=== PATIENT | female | born 1985 | race African-American/Black ===

== ENCOUNTER 2018-02-22 03:44 | Emergency (ER) | payer SELFPAY ==
[~2018-02-22] VITALS: Ht 165.1 cm; Wt 72.6 kg
[2018-02-22 03:54] VITALS: BP 125/80
[2018-02-22] MEDS ORDERED: DOCUSATE SODIUM LIQ 100 MG/10 ML UDC ONE (04:20)
[2018-02-22] MEDS ORDERED: DOCUSATE SODIUM LIQ 100 MG/10 ML UDC NG ONE (04:30)
== END 2018-02-22 05:04 | disposition home or self-care (01) ==
LOC: ER 03:54
DX: H61.23 Impacted cerumen, bilateral (principal); Z88.1 Allergy status to other antibiotic agents
CPT/HCPCS: A4606; Z7610

== ENCOUNTER 2019-01-25 05:44 | Emergency (ER) | payer SELFPAY ==
--- NOTE | 2019-01-25 05:51 | NUR ---
CALLED PATIENT FOR TRIAGE. PATIENT STATED "I AM NOT READY YET. I WANT TO GO BACK OUTSIDE"
--- NOTE | 2019-01-25 06:25 | NUR ---
PT REFUSING TO COME IN FROM WAITING ROOM AREA.
--- NOTE | 2019-01-25 07:09 | NUR ---
Called. No response. Pt Eloped prior to Triage
== END 2019-01-25 07:10 | disposition home or self-care (01) ==
LOC: ER 05:45
DX: Z53.21 Procedure and treatment not carried out due to patient leaving prior to being seen by health care provider (principal)

== ENCOUNTER 2019-01-25 09:02 | Emergency (ER) | payer SELFPAY ==
[~2019-01-25] VITALS: Ht 170.2 cm; Wt 68.0 kg
--- NOTE | 2019-01-25 09:12 | NUR ---
PATIENT UPON INITIAL NURSE ASSESMENT, DENIES HAVING SUICIDAL THOUGHTS, WHEN ASKED ABOUT HER 5150 HOLD THAT STATES SHE ASKED THE POLICE TO JUST SHOOT HER. PATIENT DOES NOT WANT TO ELABORATE. AND STATES "I WOULD LIKE TO JUST TALK W/ THE DOCTOR. ADMITS TO SMOKE WEED ON OCCASSION. AND BEING HOSPITALIZED "LAST WEEK FOR SAME REASON."
--- NOTE | 2019-01-25 09:15 | NUR ---
SEEN AND EXAMINED BY DR. MARSHALL
--- NOTE | 2019-01-25 09:25 | NUR ---
ROBERT ALAS AT BEDSIDE FOR BLOOD DRAW.
[2019-01-25 09:29] LABS: BASOPHILS # (AUTO) 0.1 /CMM (0.0-0.2); BASOPHILS % (AUTO) 0.6 % (0.0-2.0); HEMATOCRIT 39 % (33-45); HEMOGLOBIN 12.5 g/dL (11.5-14.8); LYMPHOCYTES # (AUTO) 1.3 /CMM (0.8-4.8); LYMPHOCYTES % (AUTO) 12.5 % (20.0-44.0); MEAN CORPUSCULAR HGB CONC 32 g/dl (31.0-36.0); MEAN CORPUSCULAR VOLUME 71 fL (82-100); MONOCYTES # (AUTO) 0.6 /CMM (0.1-1.30); MONOCYTES % (AUTO) 6.1 % (2.0-12.0); NEUTROPHILS # (AUTO) 8.6 /CMM (1.8-8.9); NEUTROPHILS % (AUTO) 80.8 % (43.0-81.0); PLATELET COUNT (AUTO) 282 /CMM (150-450); RED BLOOD CELL COUNT(AUTO) 5.52 MIL/uL (4.0-5.2); WHITE BLOOD COUNT (AUTO) 10.7 K/uL (4.3-11.0)
[2019-01-25 09:46] LABS: ALANINE AMINOTRANSFERASE 20 U/L (12-78); ALBUMIN 4.7 g/dL (3.4-5.0); ALKALINE PHOSPHATASE 46 U/L (46-116); ASPARTATE AMINOTRANSFERASE 27 U/L (15-37); BILIRUBIN,DIRECT 0.4 mg/dL (0.0-0.2); BILIRUBIN,TOTAL 3.2 mg/dL (0.2-1.0); CALCIUM, SERUM 9.9 mg/dL (8.5-10.1); CARBON DIOXIDE 19 mmol/L (21-32); CHLORIDE 102 mmol/L (98-107); CREATININE 1.1 mg/dL (0.6-1.3); GLUCOSE 90 mg/dL (74-106); POTASSIUM 3.5 mmol/L (3.5-5.1); SODIUM SERUM 138 mmol/L (136-145); TOTAL PROTEIN, SERUM 8.5 g/dL (6.4-8.2); UREA NITROGEN, BLOOD 15 mg/dL (7-18)
[2019-01-25 10:04] LABS: ACETAMINOPHEN 0 ug/ml (10-30)
[2019-01-25 10:05] LABS: SALICYLATE < 0.2 mg/dL (2.8-20.0)
[2019-01-25 10:12] LABS: ALCOHOL, BLOOD < 3 mg/dL (0-0)
--- NOTE | 2019-01-25 10:42 | NUR ---
URINE SPECIMEN COLLECTED AND SENT TO LAB.
[2019-01-25 10:50] LABS: APPEARANCE,URINE Clear (CLEAR); BILIRUBIN,URINE MODERATE (NEGATIVE); BLOOD, URINE Trace-lysed Ery/uL (NEGATIVE); KETONES,URINE 80 (NEGATIVE); LEUKOCYTE ESTERASE ,URINE Negative (NEGATIVE); NITRITE, URINE Negative (NEGATIVE); PH,URINE 5.5 (5.0-8.0); PROTEIN,URINE Negative (NEGATIVE); UGLUCOSE Negative (NEGATIVE); UROBILINOGEN,URINE 0.2 EU/dL (0.2)
[2019-01-25 10:56] LABS: COLOR,URINE DARK YELLOW (YELLOW)
[2019-01-25 11:03] LABS: BACTERIA,URINE Few /HPF (None Seen); MUCUS,URINE Few /LPF (None Seen); SQUAMOUS EPITHELIAL CELL,UR Moderate /HPF (None Seen); WBC,URINE 0-2 /HPF (0-3)
--- NOTE | 2019-01-25 11:26 | NUR ---
[employer] called, eta [phone]
--- NOTE | 2019-01-25 13:24 | NUR ---
REDD RN AT BEDSIDE FOR PSYCH EVAL.
--- NOTE | 2019-01-25 13:50 | NUR ---
PT IS MEDICALLY CLEARED BY ROBERT MEHTA AND PSYCH CLEARED BY REDD MADDOX, RESOURCES GIVEN BY REDD MADDOX.
--- NOTE | 2019-01-25 14:01 | NUR ---
PT BELONGINGS RETURNED AND COUNTED WITNESSED BY SERENE TAVERA AND WEI RODRIGUEZ.
--- NOTE | 2019-01-25 14:03 | NUR ---
Patient discharged to home in stable condition. Written and verbal after care instructions given. Patient verbalizes understanding of instruction.
[2019-01-25 14:05] VITALS: BP 133/81
--- NOTE | 2019-01-25 14:15 | NUR ---
PT STARTED TO BECOME BELIGERENT AND ESCORTED OUT BY [employer].
== END 2019-01-25 14:49 | disposition home or self-care (01) ==
LOC: ER 09:06
DX: F60.0 Paranoid personality disorder (principal); F32.9 Major depressive disorder, single episode, unspecified; E80.6 Other disorders of bilirubin metabolism; Z88.1 Allergy status to other antibiotic agents
CPT/HCPCS: 36415; 80048; 80076; 80305; 80307; 80329; 81001; 84703; 85025; 99285; G0480; 81000-TC

== ENCOUNTER 2022-01-17 22:13 | Emergency (ER) | payer SELFPAY ==
[~2022-01-17] VITALS: Ht 165.1 cm; Wt 69.9 kg
[2022-01-18 00:54] VITALS: BP 117/79
--- NOTE | 2022-01-18 00:54 | NUR ---
BIBSELF C/O TOOTH ACHE X5DAYS.
[2022-01-18] MEDS ORDERED: AMOX875T2 PO (00:56)
--- NOTE | 2022-01-18 00:59 | NUR ---
Patient discharged to home in stable condition. RX Written and verbal after care instructions given. Patient verbalizes understanding of instruction. PT ambulatory with a steady gait
== END 2022-01-18 01:00 | disposition home or self-care (01) ==
LOC: ER 22:14
DX: K04.7 Periapical abscess without sinus (principal); F32.9 Major depressive disorder, single episode, unspecified; Z88.1 Allergy status to other antibiotic agents